=== PATIENT | male | born 1980 | race Caucasian/White ===

== ENCOUNTER 2018-03-16 06:20 | Emergency (ER) | payer BC ==
[2018-03-16] MEDS ORDERED: Acetaminophen/oxyCODONE 325-5 MG Tab PO ONE (06:46)
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
--- NOTE | 2018-03-16 07:49 | CT ---
CT facial bones Technique: Multiple axial sections were obtained from the top of the sinuses inferiorly through the mandible. Reconstructed coronal and sagittal images were obtained. Findings: Fracture is noted anteriorly within the mandible to the midline and extending slightly to the left of midline. Displacement is seen by 4 mm. Additional fracture is identified at the angle of the right mandible and extending proximally but ending before the last molar. This fracture is displaced up to 4.4 mm. Temporomandibular joints are slightly asymmetric on the right side as compared to the left side with slight anterior translation of the left TMJ as compared to the right TMJ. Soft tissue density is noted within the maxillary sinuses as well as mucosal thickening. Minimal deformity is noted within the tip of the nasal bone most likely representing an old fracture. No other fracture is seen. Right and left globes are symmetric. Incidental nasal septal deviation is noted. Impression: 1. Mildly displaced mandibular fracture in 2 places. Fracture causes slight asymmetry of the temporomandibular joints. 2. Mucosal thickening and debris within the maxillary sinuses. 3. Fracture within the tip of the nasal bone which is most likely old. Diagnostic code #3
== END 2018-03-16 09:00 | disposition home or self-care (01) ==
LOC: JD.ED 06:20
DX: S02.609A Fracture of mandible, unspecified, initial encounter for closed fracture (principal); Y04.8XXA Assault by other bodily force, initial encounter; Y92.838 Other recreation area as the place of occurrence of the external cause
CPT/HCPCS: 70486; 99284; A9270